=== PATIENT | male | born 1945 | race Caucasian/White ===

== ENCOUNTER 2018-12-29 11:42 | Inpatient (IN) | payer MEDICARE ==
[~2018-12-29] VITALS: Ht 177.8 cm; Wt 99.8 kg
[2018-12-29] VITALS (13 sets, daily range): BP systolic 116–207; BP diastolic 70–127
[2018-12-29 12:04] LABS: ABSOLUTE EOSINOPHILS 0.4 thou/uL (0.0-0.7); ABSOLUTE LYMPHOCYTES 2.2 thou/uL (0.8-5.3); ABSOLUTE MONOCYTES 0.8 thou/uL (0.0-1.2); ABSOLUTE NEUTROPHILS 8.5 thou/uL (1.6-8.1); BASOPHILS 0.4 %; EOSINOPHILS 3.2 %; HEMATOCRIT 46.5 % (42.0-52.0); HEMOGLOBIN 16.3 gm/dL (14.0-18.0); LYMPHOCYTES 18.3 %; MCH 34.1 pg (26.0-34.0); MCHC 35.1 g/dL (28.0-37.0); MCV 97.2 fL (80.0-100.0); MONOCYTES 6.5 %; NUCLEATED RBCS 0 /100WBC; PLATELET COUNT* 343 thou/uL (150-400); POLYS 71.6 %; RBC 4.79 mil/uL (4.50-6.00); RDW-CV 13.2 % (10.5-14.5); WBC 11.8 thou/uL (4.0-11.0)
[2018-12-29 12:14] LABS: CALCIUM 9.2 mg/dL (8.5-10.1); CREATININE 1.5 mg/dL (0.6-1.3); POTASSIUM 3.7 mmol/L (3.5-5.1)
[2018-12-29 12:16] LABS: APTT 25.7 Seconds (25.0-31.3); PROTIME 10.7 Seconds (9.20-11.50)
[2018-12-29 12:29] LABS: CK-MB MASS 3.9 ng/mL (<0.5-3.6); MAGNESIUM 1.8 mg/dL (1.8-2.4); TOTAL BILIRUBIN 0.6 mg/dL (<0.1-1.0); TOTAL PROTEIN 7.7 g/dL (6.4-8.2)
--- NOTE | 2018-12-29 14:56 | CARD ---
[address] [address] CARDIAC CATH REPORT Name: AUNGJAZLYNABYDALILA Pike Room: [address] IN [facility]#: [id number] Admission: 12/29/18 Attend Phys: Ede Justin Discharge: Date of : 49 Report #: [id number] THIS REPORT FOR: //name// APPROVED REPORT Study performed: 12/29/2018 11:56:40 Patient Details Patient Status: ED Room #: The patient is a 73 year-old female Event Personnel Puma Aguilera Tread Builder, Laura Gilbert RN Gas Or Petroleum Operator, Belinda Ordaz RN Gas Or Petroleum Operator, Bayron Calle Scrub, Robby Castrejon RTR Monitor Procedures Performed Left Heart Cath w/or w/o Coronaries [id number] [facility] JUDY Place w/wo Plasty Single DIAG [id number] Hemostasis w/ Angioseal Indication Abnormal ECG, STEMI (>0 to less than or equal to 6 hours) Risk Factors Obesity, Hypercholesterolemia, Hypertension Admission/Lab Medications/Medications given during procedure Lidocaine Subcut 20 ml, Angiomax IV 15 ml, Angiomax IV 35 mg per kg, Fentanyl IV 25 mcg, Midazolam (Versed) IV 1 mg, Nitroglycerin IC 200 mcg, Aspirin PO 162 mg, Effient PO 60 mg, Lasix (Furosemide) IV 40 ml Procedure Narrative The patient was brought emergently to the Cardiac Catheterization Laboratory and was prepped and draped in a sterile manner. The right femoral was infiltrated with 2% Lidocaine subcutaneous anesthesia. A 6fr Ultimum Sheath sheath was inserted into the right femoral artery. Coronary angiography was performed using coronary diagnostic catheters. The right coronary system was accessed and visualized with a Diagnostic 6 Fr JR4 catheter. The left coronary system was accessed and visualized with a Diagnostic 6 Fr JL 4 catheter. The left ventricle was accessed and visualized with a Diagnostic [address] Pigtail catheter. Left ventricular/Aortic Valve gradient assessed via catheter pullback. Pre-demployment femoral [place] [address] CARDIAC CATH REPORT Name: AUNGDO WAGNERDALILA Pike Room: [address]#: [id number] Admission: 12/29/18 Attend Phys: Ede Justin Discharge: Date of : 49 Report #: [id number] Closure device was deployed with a 6 Fr Angioseal STS 6Fr. The patient tolerated the procedure well and there were no complications associated with the procedure. There was no hematoma. Intraoperative Conscious Sedation Sedation start time: 12:22 Case end Time: 13:00 Fentanyl 75 mcg Versed 2 mg Fluoro Time: 10.5 minutes Dose: DAP 552425 cGycm2 1438.69 mGy Contrast Type and Amount: Visipaque 200 ml Diagnostic Cath Left Main 0% narrowing LAD 80% tubular mid vessel stenosis with 100% occlusion of the prominent first diagonal branch with prominent intraluminal thrombus Circumflex Nondominant vessel with 30% mid vessel narrowing Right Coronary Large dominant vessel with 40% mid vessel narrowing and 40% narrowing of the midportion of the prominent posterolateral branch of the distal right coronary artery Hemodynamics The aortic pressure is 170/101 mmHg with a mean of 133 mmHg. The left ventricular pressure is 178/23 mmHg with a mean of mmHg. The left ventricular end diastolic pressure is 32 mmHg. There was no gradient across the aortic valve upon pullback. PCI Technique Lesion Anticoagulation was achieved with Angiomax. Patient was preloaded with Angiomax IV 15 ml. Percutaneous coronary intervention was performed on the first diagnonal branch segmentfirst diagonal branch segment. The lesion stenosis prior to intervention was 100% with FELISA 0 flow. A 6F XB LAD 3.5 Guide Catheter was used to engage the ostium. A Seafile: Vook 180cm Interventional Guidewire was used to cross the lesion. BALLOON DILATION A Balloon catheter Trek RX 2.25 X 12 was inserted and inflated up to 10.00atm for 12seconds. Additional Inflation: 14.00atm for 10seconds. Additional Inflation: 14.00atm for 9seconds. STENT DEPLOYMENT A drug-eluting stent Ryan RX Stent 2.5X18mm was inserted and inflated up to 10.00atm [place] 13[place]. [place] [address] CARDIAC CATH REPORT Name: TOBIAS RODRIGUEZ Room: [address] IN [facility]#: [id number] Admission: 12/29/18 Attend Phys: Ede Justin Discharge: Date of : 49 Report #: [id number] STENT DEPLOYMENT BALLOON DILATION A Balloon catheter Bernice RX Stent 2.5X18mm was inserted and inflated up to 10.00atm for 13seconds. Additional Inflation: 14.00atm for 11seconds. Additional Inflation: 17.00atm for 9seconds. Final angiography reveals 0 % stenosis with FELISA 3 flow. Conclusion #[address] segment elevation myocardial infarction #2 coronary disease characterized by the following: A 80% tubular mid LAD stenosis with 100% occlusion of the prominent first diagonal branch of the LAD with prominent intraluminal thrombus B 30% narrowing of the midportion of the nondominant circumflex C large dominant right coronary artery with 40% mid vessel narrowing and 40% narrowing midportion of the posterolateral branch of the distal right coronary artery #3 moderate systemic systolic hypertension with severe elevation of left ventricular end-diastolic pressure at rest #4 successful percutaneous coronary intervention with deployment of a drug-eluting stent at the site of 100% first diagonal occlusion with 0% residual narrowing following stent deployment and FELISA-3 flow to the distal vessel and no residual thrombus Recommendations Cardiac Risk Reduction Program Medications Administered Aspirin (any) Prasugrel Diagnostic Cath Approved by: Puma Aguilera MD Date/Time: 12/29/2018 14:55:15 <ELECTRONICALLY SIGNED> By: Puma Aguilera MD, FACC 12/29/18 1456 1456 1456Puma Aguilera MD, FACC /INF
--- NOTE | 2018-12-29 15:49 | EKG ---
[place] [address] ELECTROCARDIOGRAM REPORT Name: TOBIAS RODRIGUEZ Room: [address] ADM IN .R.#: [id number] Admission: 12/29/18 Attend Phys: Ede Justin Discharge: Date of : 49 Report #: [id number] THIS REPORT FOR: //name// [facility] ED Test Date: 2018-12-29 Test Time: 11:46:05 Pat Name: TOBIAS RODRIGUEZ Department: Room: [facility] Gender: M Requirements Engineer: : 1945 Requested By: Francesco Camacho Order Number: [id number] MD: Puma Aguilera Measurements Intervals [place] Rate: 116 P: 68 OR: 188 QRS: 14 QRSD: 88 T: 15 QT: 314 QTc: 437 Interpretive Statements Sinus tachycardia Ventricular bigeminy High lateral ST segment elevation suggesting acute high lateral ST segment elevation myocardial infarction Low voltage, precordial leads No previous ECG available for comparison Electronically Signed On 12-29-2018 15:49:38 BSA/AML COMPLIANCE OFFICER by Puma Aguilera [email or web address] <ELECTRONICALLY SIGNED> By: Puma Aguilera MD, FAC 12/29/18 1549 1146 1146 Puma Aguilera MD, [facility] /EPI
--- NOTE | 2018-12-29 15:52 | EKG ---
[place] [address] ELECTROCARDIOGRAM REPORT Name: TOBIAS RODRIGUEZ Room: [address] ADM IN M.R.#: [id number] Admission: 12/29/18 Attend Phys: Ede Justin Discharge: Date of : 49 Report #: [id number] THIS REPORT FOR: //name// [facility] Test Date: 2018-12-29 Test Time: 13:59:32 Pat Name: TOBIAS RODRIGUEZ Department: Room: [facility] Gender: M Lumber Carrier: : 1945 Requested By: Puma Aguilera Order Number: [id number] Tiana MD: Puma Aguilera Measurements Intervals [place] Rate: 85 P: 47 [place]: 186 QRS: 39 QRSD: 82 T: 93 QT: 364 QTc: 433 Interpretive Statements Sinus rhythm Low voltage, precordial leads since previous tracing, PVCs no longer noted there has been evolution of the high lateral ST segment elevation myocardial infarction with T-wave inversion noted in the high lateral leads. Electronically Signed On 12-29-2018 15:52:25 ARMATURE BANDER by Puma Aguilera [email or web address] <ELECTRONICALLY SIGNED> By: Puma Aguilera MD, FACC 12/29/18 1552 1359 1359 Puma Aguilera MD, [facility] /EPI
--- NOTE | 2018-12-29 17:42 | NUR ---
RECIEVED PT FROM [facility] AT 1330H, ON RA AND TOLERATED.NO CHEST PAIN.SEEN BY HOSPITALIST AND SECONDARY CONNECTOR ARMATURE AND TALKED TO THE PT AND FAMILY.NO BLEEDING NOTED, DRESSING WITH BLOOD STAIN BU NO ACTIVE BLEEDING.ANGIOMAS STOP.PT COMPLAIN OF HEARTBURN, INFORM HOSPITALIST WITH ORDERS AND CARRIED OUT.CONTINUE MONITORING AND TOWARD GOALS.CALL LIGHT WITHIN REACH.
[2018-12-30] VITALS (12 sets, daily range): BP systolic 103–146; BP diastolic 64–88
[2018-12-30 04:04] LABS: HEMATOCRIT 43.3 % (42.0-52.0); HEMOGLOBIN 14.9 gm/dL (14.0-18.0); MCH 33.3 pg (26.0-34.0); MCHC 34.5 g/dL (28.0-37.0); MCV 96.5 fL (80.0-100.0); MPV 8.2 fl. (7.2-11.1); RBC 4.48 mil/uL (4.50-6.00); WBC 10.8 thou/uL (4.0-11.0)
[2018-12-30 05:39] LABS: ALBUMIN 3.2 g/dL (3.4-5.0); ALKALINE PHOSPHATASE 85 U/L (46-116); ANION GAP 14 mmol/L (7-16); BUN 18 mg/dL (7-18); CALCIUM 8.6 mg/dL (8.5-10.1); CHLORIDE 102 mmol/L (98-107); CHOLESTEROL 217 mg/dL (<200); CK-MB MASS 137.8 ng/mL (<0.5-3.6); CO2 23 mmol/L (21-32); GLUCOSE 115 mg/dL (70-99); HDL CHOLESTEROL 35 mg/dL (>40); LDL CHOLESTEROL 153 mg/dL (<100); POTASSIUM 4.3 mmol/L (3.5-5.1); SGOT 194 U/L (15-37); SGPT 59 U/L (30-65); SODIUM 139 mmol/L (136-145); TC:HDL 6.2 Ratio (Not establshd); TOTAL BILIRUBIN 0.9 mg/dL (<0.1-1.0); TOTAL PROTEIN 6.2 g/dL (6.4-8.2); TRIGLYCERIDE 149 mg/dL (<150); VLDL 30 mg/dL (<40)
[2018-12-30 05:40] LABS: SERUM ASSESSMENT Clear
--- NOTE | 2018-12-30 06:50 | NUR ---
RECEIVED REPORT AND ASSUMED CARE AT 1900. BP ELEVATED, PRN MEDICATION ADMIN PER ORDERS. PT DENIES COMPLAINTS OF PAIN. ASSESSMENT COMPLETED CHARTED. R GROIN MONITORED THROUGH SHIFT. NO HEMATOMA OR SIGNS OF BLEEDING. DRESSING SATURATED AT BEGINNING OF SHIFT/ NEW DRESSING APPLIED. BED LOCKED IN LOWEST POSITION, CALL LIGHT WITHIN REACH, HOURLY ROUNDING COMPLETED AND ALL NEEDS MET.
--- NOTE | 2018-12-30 10:24 | NUR ---
ICU rounds: Pt having an Echo now, then to move to room 206. Plan dc tomorrow per cardiology. CM to attempt to assess later
--- NOTE | 2018-12-30 10:27 | CON ---
[address] [address] CONSULTATION Name: TOBIAS RODRIGUEZ Room: [address] IN .R.#: [id number] Admission: 12/29/18 Attend Phys: Ede Justin Discharge: Date of : 49 Report #: [id number] THIS REPORT FOR: //name// CC: Anthony Howe DATE OF SERVICE: 12/29/2018 CARDIOLOGY CONSULTATION The patient is being admitted to the ICU on 12/29/2018. HISTORY OF PRESENT ILLNESS: The patient is a 73-year-old male with a history of a brief episode of chest pain with tingling in his arms this past Thursday. Today after chopping down a tree, he had severe chest pain with associated malaise and discomfort in the arms. He presented to the [facility] Room and had high lateral ST-segment elevation suggesting acute ST-segment elevation, high lateral myocardial infarction. The pain persisted after heparin, aspirin, and nitrates. The patient denied a family history of premature coronary artery disease, cigarette smoking, hypertension, or hypercholesterolemia. There has been moderate significant weight excess. PAST MEDICAL HISTORY: Remarkable for weight excess. SOCIAL HISTORY: He is a nonsmoker. He is . PHYSICAL EXAMINATION: GENERAL: Reveals an acutely distressed middle-aged male. VITAL SIGNS: Blood pressure is 150/100, pulse rate is 78, and respirations are 18 per minute. NECK: Jugular venous pressure is normal. CHEST: Clear. CARDIAC: Reveals normal first and second heart sounds with a question of S4 gallop. ABDOMEN: Moderately obese. EXTREMITIES: Without edema with intact femoral, pedal and radial pulses. EKG reveals acute high lateral ST-segment elevation myocardial infarction. IMPRESSION: 1. Acute ST-segment elevation myocardial infarction; appearing to [place] [address] CONSULTATION Name: TOBIAS RODRIGUEZ Room: [address] IN [facility]#: [id number] Admission: 12/29/18 Attend Phys: Ede Justin Discharge: Date of : 49 Report #: [id number] 2. Coronary artery disease. 3. Hypertension in the ER. RECOMMENDATIONS: Given the current circumstance with acute presentation with ST-segment elevation myocardial infarction, I would recommend emergent catheterization with the strong consideration of acute intervention ____ on the results of the catheterization. This has been discussed with the patient and family. CRITICAL CARE TIME: 40 minutes from 12:50 to 13:30 on 12/29/2018. <ELECTRONICALLY SIGNED> By: Puma Aguilera MD, [facility] 12/30/18 1027 1331 1427Josolomon Aguilera MD, FACC /nt
--- NOTE | 2018-12-30 10:34 | EKG ---
[place] [address] ELECTROCARDIOGRAM REPORT Name: TOBIAS RODRIGUEZ Room: [address] ADM IN M.R.#: [id number] Admission: 12/29/18 Attend Phys: Ede Justin Discharge: Date of : 49 Report #: [id number] THIS REPORT FOR: //name// [facility] Test Date: 2018-12-30 Test Time: 09:17:09 Pat Name: TOBIAS RODRIGUEZ Department: Room: [facility] Gender: M Water Tender: : 1945 Requested By: Puma Aguilera Order Number: [id number] Tiana MD: Puma Aguilera Measurements Intervals [place] Rate: 94 P: 47 [place]: 174 QRS: 60 QRSD: 81 T: 123 QT: 385 QTc: 482 Interpretive Statements Sinus rhythm Anteroseptal infarct, evolving Lateral leads are also involved Compared to ECG 12/29/2018 13:59:32 Ventricular premature complex(es) no longer present ST (T wave) deviation no longer present Myocardial infarct finding still present Electronically Signed On 12-30-2018 10:33:57 COMMUNICATIONS SUPERINTENDENT by Puma Aguilera [email or web address] <ELECTRONICALLY SIGNED> By: Puma Aguilera MD, FAC 12/30/18 1033 6 6 Puma Aguilera MD, FAC /EPI
--- NOTE | 2018-12-30 10:44 | NUR ---
REPORT GIVEN TO MAY LESLIE. REVIEWED NEW ORDERS PER CHANDAN. TRANSFERRED TO RM 206. PT A/OX4, NO PAIN, VITAL SIGNS STABLE-SLIGHT ELEVATED HR-HOLKINS INCREASED COREG DOSE. AT SIDE, ASSISTED WITH TRANSFERRING PT BELONGINGS.
--- NOTE | 2018-12-30 11:16 | NUR ---
RECEIVED PT FROM ICU AT 1030. GET SITUATED TO ROOM, TRACING SR ON MONITOR. PT DENIES PAIN. O2 SAT 90'S RA. UP SBA. VSS, I AGREE WITH CODIE OLVERA AM ASSESSMENT. HOURLY ROUNDING, CALL LIGHT WITHIN REACH, WILL CONTINUE TO MONITOR.
--- NOTE | 2018-12-30 11:37 | 2DMMODE ---
[place] [address] 2 D/M-MODE ECHOCARDIOGRAM Name: TOBIAS RODRIGUEZ Room: [address] IN [facility]#: [id number] Admission: 12/29/18 Attend Phys: Apolinar Howe Discharge: Date of : 49 Date of Service: 12/30/18 1136 Report #: [id number] THIS REPORT FOR: //name// APPROVED REPORT Study performed: 12/30/2018 09:51:18 EXAM: Comprehensive 2D, Doppler, and color-flow Echocardiogram Patient Location: In-Patient Room #: 002 Status: routine BSA: 2.20 HR: 89 bpm BP: 132/78 mmHg Rhythm: NSR Other Information Study Quality: Good Indications Acute UT 2D Dimensions IVSd: 11.18 (7-11mm) LVOT Diam: 22.28 (18-24mm) LVDd: 42.10 mm PWd: 12.45 (7-11mm) Ascending Ao: 34.73 (22-36mm) LVDs: 24.15 (25-40mm) Aortic Root: 34.99 mm Volumes Left Atrial Volume (Systole) LA ESV Index: 15.50 mL/m2 Aortic Valve AoV Peak Mohit.: 1.57 m/s AO Peak Gr.: 9.87 mmHg LVOT Max P.54 mmHg AO Mean Gr.: 5.90 mmHg LVOT Mean P.32 mmHg LVOT Max V: 1.62 m/s AO V2 VTI: 24.18 cm LVOT Mean V: 1.06 m/s KB (VTI): 4.65 cm2 LVOT V1 VTI: 28.82 cm AI Kimble: 2.07 m/s2 AI PHT: 492.11 ms Mitral Valve E/A Ratio: 0.61 [place] [address] 2 D/M-MODE ECHOCARDIOGRAM Name: TOBIAS RODRIGUEZ Room: [address] IN [facility]#: [id number] Admission: 12/29/18 Attend Phys: Apolinar Howe Discharge: Date of : 49 Date of Service: 12/30/18 1136 Report #: [id number] MV Decel. Time: 239.25 ms MV E Max Mohit.: 0.53 m/s MV PHT: 69.38 ms MVA (PHT): 3.17 cm2 TDI E/Lateral E': 8.83 E/Medial E': 4.42 Medial E' Mohit.: 0.12 m/s Lateral E' Mohit.: 0.06 m/s Pulmonary Valve PV Peak Mohit.: 1.18 m/s PV Peak Gr.: 5.59 mmHg Left Ventricle The left ventricle is normal size. Hypokinesis noted in the distal to apical anterolateral wall. There is normal left ventricular wall thickness. Left ventricular systolic function is preserved. LVEF is 55-60%. Grade I - abnormal relaxation pattern. Right Ventricle The right ventricle is normal size. The right ventricular systolic function is normal. Atria The left atrium size is normal. The right atrium size is normal. Aortic Valve The aortic valve is normal in structure. Mild aortic regurgitation. There is no aortic valvular stenosis. Mitral Valve The mitral valve is normal in structure. Trace mitral regurgitation. No evidence of mitral valve stenosis. Tricuspid Valve The tricuspid valve is normal in structure. Unable to assess PA pressure. Trace tricuspid regurgitation. Pulmonic Valve The pulmonary valve is normal in structure. There is no pulmonic valvular regurgitation. Great Vessels The aortic root is normal in size. IVC is normal in size and collapses >50% [place] [address] 2 D/M-MODE ECHOCARDIOGRAM Name: TOBIAS RODRIGUEZ Room: [address] IN [facility]#: [id number] Admission: 12/29/18 Attend Phys: Apolinar Howe Discharge: Date of : 49 Date of Service: 12/30/18 1136 Report #: [id number] Pericardium There is no pericardial effusion. <Conclusion> The left ventricle is normal size. There is normal left ventricular wall thickness. Left ventricular systolic function is preserved. LVEF is 55-60%. Grade I - abnormal relaxation pattern. Hypokinesis noted in the distal to apical anterolateral wall. Mild aortic regurgitation. Trace mitral regurgitation. Trace tricuspid regurgitation. IVC is normal in size and collapses >50% with inspiration. <ELECTRONICALLY SIGNED> By: Prosper Alexis MD, FACC 12/30/18 1136 1136 1136 Prosper Alexis MD, FACC /INF
[2018-12-31] VITALS (13 sets, daily range): BP systolic 94–124; BP diastolic 56–81
--- NOTE | 2018-12-31 07:26 | NUR ---
PT IS ABLE TO COMMUNICATE HIS NEEDS TO STAFF EFFECTIVELY. HE HAS DENIED THE NEED FOR PAIN MEDICATION UP TO THIS TIME; HE HAS DENIED ANY REOCCURANCE OF CHEST PAIN OVERNIGHT. RIGHT GROIN CATH SITE BANDAID IS C/D/I. POSSIBLE DISCHARGE LATER TODAY.
--- NOTE | 2018-12-31 11:27 | NUR ---
Pt out of room for second cath, CM will attempt to assess later
--- NOTE | 2018-12-31 14:00 | EKG ---
[place] [address] ELECTROCARDIOGRAM REPORT Name: TOBIAS RODRIGUEZ Room: [address] ADM IN M.R.#: [id number] Admission: 12/29/18 Attend Phys: Ede Justin Discharge: Date of : 49 Report #: [id number] THIS REPORT FOR: //name// [facility] Test Date: 2018-12-31 Test Time: 12:00:59 Pat Name: TOBIAS RODRIGUEZ Department: Room: [address] Gender: M Iron Assorter: : 1945 Requested By: Puma Aguilera Order Number: [id number] Tiana MD: Puma Aguilera Measurements Intervals [place] Rate: 81 P: 48 [place]: 175 QRS: 51 QRSD: 81 T: 121 QT: 400 QTc: 465 Interpretive Statements Sinus rhythm Anteroseptal infarct, age indeterminate Lateral leads are also involved Compared to ECG 12/30/2018 09:17:09 No significant changes Electronically Signed On 12-31-2018 13:59:44 ETHANOL QUALITY LEADER by Puma Aguilera [email or web address] <ELECTRONICALLY SIGNED> By: Puma Aguilera MD, FACC 12/31/18 1359 1200 1200 Puma Aguilera MD, [facility] /EPI
--- NOTE | 2018-12-31 14:16 | CARD ---
[address] [address] CARDIAC CATH REPORT Name: DO MICHAELDALILA Pike Room: [address] IN [facility]#: [id number] Admission: 12/29/18 Attend Phys: Ede Justin Discharge: Date of : 49 Report #: [id number] THIS REPORT FOR: //name// APPROVED REPORT Study performed: 12/31/2018 09:53:20 Patient Details Patient Status: In-Patient Room #: The patient is a 73 year-old male Event Personnel Puma Aguilera Corrections Nurse, Laura Gilbert RN Supervisor Pastry, Belinda Ordaz RN Supervisor Pastry, Thomas Farr RADIATION PROTECTION TECHNICIAN Scrub, Aarti Varghese RTR Monitor Procedures Performed Art Access - R femoral artery, Left Heart Cath w/or w/o Coronaries LHC, JUDY Place w/wo Plasty Single LAD, Hemostasis w/ Angioseal Indication STEMI , Chest pain Risk Factors Hypercholesterolemia, Hypertension Previous Procedures/Diagnoses Previous PCI, Previous WI Admission/Lab Medications/Medications given during procedure Angiomax IV 15 mg per kg, Angiomax Drip IV 34.92 ml per hr, Effient PO 30 mg, Aspirin PO 81 mg Procedure Narrative The patient was brought electively to the Cardiac Catheterization Laboratory and was prepped and draped in a sterile manner. The right femoral groin area was infiltrated with 2% Lidocaine subcutaneous anesthesia. A [place] 6 FR sheath was inserted into the right femoral artery. Coronary angiography was performed using coronary diagnostic catheters. The right coronary system was accessed and visualized with a 6F JR4 catheter. The left coronary system was accessed and visualized with a 6F JL4 catheter. The left ventricle was accessed and visualized with a 6F Pigtail catheter. Left ventricular/Aortic Valve gradient assessed [place] [address] CARDIAC CATH REPORT Name: TOBIAS RODRIGUEZ Room: [address]#: [id number] Admission: 12/29/18 Attend Phys: Ede Justin Discharge: Date of : 49 Report #: [id number] Pre-demployment femoral angiogram was performed . Closure device was deployed with a 6 Fr Angioseal STS 6Fr. The patient tolerated the procedure well and there were no complications associated with the procedure. There was no hematoma. Intraoperative Conscious Sedation Sedation start time: 10:37 Case end Time: 11:16 Fentanyl 50 mcg Versed 2 mg Fluoro Time: 9.5 minutes Dose: DAP 31375 cGycm2 1329 mGy Contrast Type and Amount: Visipaque 245 ml Diagnostic Cath Left Main 0% narrowing LAD 80% tubular mid LAD narrowing with 40% distal LAD narrowing; there is a widely patent stent in the proximal portion of the prominent second diagonal branch Circumflex Small nondominant vessel with 40% mid vessel narrowing Right Coronary Large dominant vessel with 40% mid vessel narrowing and 40% narrowing of the midportion of the prominent posterolateral branch as defined by recent cineangiogram Left Ventriculography The left ventricle is normal in size with contractility. The left ventricular ejection fraction is estimated to be 60%. Left ventricular wall motion abnormalities are present. There is no mitral insufficiency. There is modest mid anterior hypokinesis noted Hemodynamics The aortic pressure is 99/57 mmHg with a mean of 62 mmHg. The left ventricular pressure is 91/1 mmHg with a mean of mmHg. The left ventricular end diastolic pressure is 8 mmHg. There was no gradient across the aortic valve upon pullback. PCI Technique Lesion Anticoagulation was achieved with Angiomax. Patient was preloaded with Angiomax IV 15 mg per kg. Percutaneous coronary intervention was performed on the mid left anterior descending artery segment. The lesion stenosis prior to intervention was 80% with FELISA 3 flow. A 6F XB LAD 3.5 Guide Catheter was used to engage the ostium. A BMW 190cm Interventional Guidewire was [place] [address] CARDIAC CATH REPORT Name: TOBIAS RODRIGUEZ Room: [address] .R.#: [id number] Admission: 12/29/18 Attend Phys: Ede Justin Discharge: Date of : 49 Report #: [id number] BALLOON DILATION A Balloon catheter Mini Trek RX 2.0 X 15 was inserted and inflated up to 12.00atm for 9seconds. Additional Inflation: 12.00atm for 8seconds. Additional Inflation: 12.00atm for 7seconds. STENT DEPLOYMENT A drug-eluting stent [place] RX Stent 2.0X26mm was inserted and inflated up to 12.00atm for 6seconds. Additional Inflation: 16.00atm for 6seconds. Additional Inflation: 17.00atm for 8seconds. Final angiography reveals 0 % stenosis with FELISA 3 flow. COMMENTS Kreix Flex 180cm interventional wire down Diagonal artery. Conclusion #1 significant coronary artery disease characterized by the following: A 80% tubular mid LAD stenosis with a widely patent first diagonal stent and 40% distal LAD narrowing B 40% narrowing of the midportion of the small nondominant circumflex C dominant right coronary artery with 40% mid vessel narrowing and 40% narrowing of the midportion of the prominent terminal posterolateral branch #2 normal global left ventricular systolic function, estimate ejection fraction being 60% with modest mid anterior hypokinesis #3 normal left-sided hemodynamics study #4 successful percutaneous coronary intervention with deployment of a drug-eluting stent at the site of 80% mid LAD stenosis with 0% residual narrowing and FELISA-3 flow to the distal vessel Recommendations Cardiac Risk Reduction Program Aggressive Medical Therapy Medications Administered Aspirin (any) [place] [address] CARDIAC CATH REPORT Name: TOBIAS RODRIGUEZ Room: [address]#: [id number] Admission: 12/29/18 Attend Phys: Ede Justin Discharge: Date of : 49 Report #: [id number] Prasugrel Diagnostic Cath Approved by: Puma Aguilera MD Date/Time: 12/31/2018 14:14:55 <ELECTRONICALLY SIGNED> By: Puma Aguilera MD, FACC 12/31/18 1415 1415 1415Josolomon Aguilera MD, FACC /INF
--- NOTE | 2018-12-31 15:26 | NUR ---
ASSUMED PT CARE AT 0800, AOX4, O2 SAT 90'S. TRACING SR ON TELE. DENIES PAIN. PT HAD HEART CATH TODAY. R GROIN C/D/I. POST CATH VS CHARTED. PT BEDREST UNTIL 183. PT IV ACCESS INTACT, ON IV FLUIDS. HOURLY ROUNDING, CALL LIGHT WITHIN REACH, WILL CONTINUE TO MONITOR.
[2019-01-01] VITALS: BP 93/53
[2019-01-01 04:00] VITALS: BP 105/56
[2019-01-01 05:26] LABS: HEMATOCRIT 39.3 % (42.0-52.0); HEMOGLOBIN 13.5 gm/dL (14.0-18.0); MCH 33.6 pg (26.0-34.0); MCHC 34.4 g/dL (28.0-37.0); MCV 97.7 fL (80.0-100.0); MPV 7.8 fl. (7.2-11.1); RBC 4.02 mil/uL (4.50-6.00); RDW-CV 12.8 % (10.5-14.5); WBC 8.8 thou/uL (4.0-11.0)
--- NOTE | 2019-01-01 05:28 | NUR ---
PT IS ABLE TO COMMUNICATE HIS NEEDS TO STAFF EFFECTIVELY. CURRENT PAIN MEDICATION REGIMEN HAS BEEN ADEQUATE FOR CONTROLLING HIS PAIN UP TO THIS TIME. LIKELY DISCHARGE LATER TODAY. PT DID HAVE HEADACHE EARLIER IN THE EVENING ON 12/31 BUT FEELS BETER NOW. RIGHT GROIN CATH SITE DRESSING IS C/D/I.
[2019-01-01 05:56] LABS: ALBUMIN 2.6 g/dL (3.4-5.0); CALCIUM 8.1 mg/dL (8.5-10.1); CREATININE 1.1 mg/dL (0.6-1.3); POTASSIUM 4.3 mmol/L (3.5-5.1); TOTAL BILIRUBIN 0.6 mg/dL (<0.1-1.0); TOTAL PROTEIN 5.9 g/dL (6.4-8.2)
[2019-01-01 06:03] LABS: TROPONIN-I LEVEL 8.1 ng/mL (<0.06)
[2019-01-01 08:00] VITALS: BP 110/77
--- NOTE | 2019-01-01 11:28 | EKG ---
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1945 Requested By: Puma Aguilera Order Number: [id number] Tiana MD: Puma Aguilera Measurements Intervals [place] Rate: 80 P: 56 PA: 187 QRS: 56 QRSD: 80 T: 115 QT: 365 QTc: 421 Interpretive Statements Sinus rhythm Anteroseptal infarct, age indeterminate Lateral leads are also involved Compared to ECG 12/31/2018 12:00:59 No significant changes Electronically Signed On 01-01-2019 11:28:35 NUCLEAR REACTOR TECHNICIAN by Puma Aguilera [email or web address] <ELECTRONICALLY SIGNED> By: Puma Aguilera MD, [facility] 01/01/19 1128 [id number] Puma Aguilera MD, [facility] /EPI
[2019-01-01 12:00] VITALS: BP 116/74
[2019-01-01] MEDS ORDERED: NITROSTAT0.4 M1 SUBLING (12:17)
[2019-01-01] MEDS ORDERED: LIPITOR40 MG PO (12:18)
[2019-01-01] MEDS ORDERED: CARVEDILOL12.5 MG PO (12:19)
[2019-01-01] MEDS ORDERED: PRINIVIL10 MG PO (12:20)
[2019-01-01] MEDS ORDERED: EFFIENT10 MG PO (12:21)
[2019-01-01] MEDS ORDERED: ASA81BEC PO (12:24)
--- NOTE | 2019-01-01 13:31 | NUR ---
RECEIVED REPORT. ASSUMED CARE OF PT AROUND 729. PT A&O X4. VSS. BULLION WEIGHER IN PLACE TRACING SR. AM ASSESSMENT AND VITALS COMPLETED CHARTED. RIGHT GROIN CATH SITE CDI, NO HEMATOMA. PT DENIES PAIN. AT BEDSIDE. DISCHARGE ORDERS RECEIVED. DISCHARGE COMPLETED DOCUMENTED. SCRIPTS, CARE NOTES AND APPOINTMENT CARDS GIVEN. DISCHARGE SUMAMRY GONE OVER WITH PT AND FAMILY - ALL COMMUNICATE UNDERSTANDING. IV AND BULLION WEIGHER REMOVED. ALL BELONGINGS GATHERED AND LEFT WITH PT. PT LEFT UNIT IN WC WITH NURSING STAFF. PT LEFT HOSPITAL IN CAR WITH FAMILY.
== END 2019-01-01 13:12 | disposition home or self-care (01) | DRG 246 ==
LOC: M.ERS 11:42 → M.ICU 12:12 → M.2W 12:12 → M.TBA-CV 12:12 → M.ICU 13:25 → M.2W 12-30 10:35
PROVIDERS: Family Medicine; Internal Medicine; ADMIT Internal Medicine
DX: I21.09 ST elevation (STEMI) myocardial infarction involving other coronary artery of anterior wall (principal); R65.11 Systemic inflammatory response syndrome (SIRS) of non-infectious origin with acute organ dysfunction; N17.9 Acute kidney failure, unspecified; I25.10 Atherosclerotic heart disease of native coronary artery without angina pectoris; I10 Essential (primary) hypertension; E78.5 Hyperlipidemia, unspecified; Z82.49 Family history of ischemic heart disease and other diseases of the circulatory system; Z79.899 Other long term (current) drug therapy